=== PATIENT | female | born 1995 | race Caucasian/White ===

== ENCOUNTER 2016-05-10 13:39 | Emergency (ER) | payer OTHER ==
[~2016-05-10] VITALS: Ht 165.1 cm; Wt 49.4 kg
[~2016-05-10 13:39] MED LIST: CYCLOBENZAPRINE5 MG PO
[2016-05-10] MEDS ORDERED: HYDROCODONE-AP1 EAC6 PO (15:27)
[2016-05-10] MEDS ORDERED: IBUPROFEN 600600 M1 PO (15:27)
[2016-05-10 15:53] VITALS: BP 121/78
== END 2016-05-10 15:54 | disposition home or self-care (01) ==
LOC: ER 13:39
DX: L02.412 Cutaneous abscess of left axilla (principal); F10.99 Alcohol use, unspecified with unspecified alcohol-induced disorder

== ENCOUNTER 2016-09-06 15:51 | Emergency (ER) | payer OTHER ==
[~2016-09-06] VITALS: Ht 165.1 cm; Wt 49.4 kg
[~2016-09-06 15:51] MED LIST changes: +HYDROCODONE-AP1 EAC6 PO; +IBUPROFEN 600600 M1 PO
[2016-09-06 16:42] LABS: URINE BILIRUBIN NEGATIVE (Negative); URINE BLOOD NEGATIVE (Negative); URINE COLOR YELLOW; URINE GLUCOSE-RANDOM* NEGATIVE (Negative); URINE KETONES NEGATIVE (Negative); URINE LEUKOCYTES-REFLEX NEGATIVE (Negative); URINE PROTEIN (DIPSTICK) TRACE (Negative); URINE UROBILINOGEN 0.2 E.U./dl (0.2-1.0)
[2016-09-06] MEDS ORDERED: NAPROSYN500 MG PO (18:35)
[2016-09-06 18:46] VITALS: BP 108/67
[2016-09-07 21:07] LABS: CHLAMYDIA TRACHOMATIS-PCR Positive (Negative); NEISSERIA GONORRHEA-PCR Negative (Negative)
== END 2016-09-06 18:37 | disposition home or self-care (01) ==
LOC: ER 15:51
PROVIDERS: Emergency Medicine
DX: N91.1 Secondary amenorrhea (principal); F10.99 Alcohol use, unspecified with unspecified alcohol-induced disorder

== ENCOUNTER 2016-10-25 13:40 | Emergency (ER) | payer OTHER ==
[~2016-10-25] VITALS: Ht 165.1 cm; Wt 52.2 kg
--- NOTE | ~2016-10-25 | EKG ---
[address] [address] [place] [address] ELECTROCARDIOGRAM REPORT Name: JAMEL MERCHANT [id number] Admission: 10/25/16 Attend Phys: Discharge: 10/25/16 Date of : [birth year] Report #: [id number] THIS REPORT FOR: //name// [facility] ED Test Date: 2016-10-25 Test Time: 14:02:24 Pat Name: JAMEL MERCHANT Department: Room: Gender: F Keyboarding Clerk: MARITZA : 1995 Requested By: Shon Duke Order Number: [id number] MD: Tam Nick Measurements Intervals [place] Rate: 84 P: -27 HI: 125 QRS: 80 QRSD: 84 T: -6 QT: 336 QTc: 398 Interpretive Statements Sinus rhythm No significant abnormality Baseline wander in lead(s) II,III,aVF No previous ECG available for comparison Electronically Signed On 10-26-2016 8:57:07 CDT by Tam Nick [email or web address] <ELECTRONICALLY SIGNED> By: Tam Nick MD, [facility] 10/26/16 0857 1402 01 Tam Nick MD, FACC /EPI
[~2016-10-25 13:40] MED LIST changes: +NAPROSYN500 MG PO
[2016-10-25] MEDS ORDERED: NOHOMEMEDICATIONS (14:09)
[2016-10-25 14:16] LABS: BASOPHILS 1.2 % (0.0-2.0); EOSINOPHILS 1.3 % (0.0-3.0); HEMATOCRIT 42.6 % (37.0-47.0); HEMOGLOBIN 14.7 gm/dL (12.0-15.0); LYMPHOCYTES 34.1 % (24.0-44.0); MCH 32.2 pg (26.0-34.0); MCHC 34.5 g/dL (28.0-37.0); MCV 93.4 fL (80.0-100.0); MONOCYTES 6.4 % (1.0-8.0); PLATELET COUNT 269 thou/uL (150-400); RBC 4.56 mil/uL (4.20-5.00); RDW 13.8 % (10.5-14.5); WBC 5.3 thou/uL (4.0-11.0)
[2016-10-25 14:18] LABS: MANUAL DIFF NO
[2016-10-25 14:29] LABS: ANION GAP 7 mmol/L (7-16); BUN 13 mg/dL (7-18); CALCIUM 9.6 mg/dL (8.5-10.1); CHLORIDE 104 mmol/L (98-107); CO2 27 mmol/L (21-32); CREATININE 0.8 mg/dL (0.6-1.0); GLUCOSE 93 mg/dL (74-106); POTASSIUM 3.5 mmol/L (3.5-5.1); SODIUM 138 mmol/L (136-145)
[2016-10-25 14:38] LABS: TROPONIN-I < 0.04 ng/mL (<0.04-0.07)
[2016-10-25] MEDS ORDERED: NAPROSYN500 MG PO (14:48)
[2016-10-25 15:23] VITALS: BP 103/64
== END 2016-10-25 15:24 | disposition home or self-care (01) ==
LOC: ER 13:40
PROVIDERS: Emergency Medicine
DX: R07.9 Chest pain, unspecified (principal); F10.99 Alcohol use, unspecified with unspecified alcohol-induced disorder